=== PATIENT | female | born 1940 | race Caucasian/White ===

== ENCOUNTER → 2023-10-07 14:24 | Outpatient (REF) | payer OTHER, SELFPAY | LOC: REG 14:24 | PROVIDERS: ATTENDING PHYSICIAN Physician Assistant Medical | DX: M25.512 Pain in left shoulder (principal) | CPT/HCPCS: 73030 ==

== ENCOUNTER → 2023-10-26 09:41 | Outpatient (REF) | payer OTHER, SELFPAY | LOC: HWRAD 09:41 | PROVIDERS: ATTENDING PHYSICIAN Family Medicine | DX: M81.0 Age-related osteoporosis without current pathological fracture (principal) | CPT/HCPCS: 77080 ==

== ENCOUNTER → 2023-11-11 14:26 | Outpatient (REF) | payer OTHER, SELFPAY | LOC: HWRAD 14:26 | PROVIDERS: ATTENDING PHYSICIAN Physician Assistant Medical; FAMILY PHYSICIAN Family Medicine | DX: M79.644 Pain in right finger(s) (principal) | CPT/HCPCS: 73140 ==

== ENCOUNTER → 2024-05-23 08:31 | Outpatient (REF) | payer OTHER, SELFPAY | LOC: HWWDC 08:31 | PROVIDERS: ATTENDING PHYSICIAN Family Medicine | DX: Z12.31 Encounter for screening mammogram for malignant neoplasm of breast (principal) | CPT/HCPCS: 77063; 77067 ==

== ENCOUNTER 2024-08-04 20:26 | Emergency (ER) | payer OTHER, SELFPAY ==
[2024-08-04] VITALS (7 sets, daily range): BP systolic 159–192; BP diastolic 77–105; PULSE 92–99; BMI 31.2
[2024-08-04 21:07] LABS: % Basophils 0.8 % (0-2); % Eosinophils 1.5 % (0-6); % Immature Granulocytes 0.3 % (0-0.5); % Lymphocytes 25.6 % (20.5-51.1); % Monocytes 10.3 % (1.7-9.3); % Neutrophils 61.5 % (42.2-75.2); Absolute Basophils 0.1 10^3/uL (0-0.2); Absolute Eosinophils 0.1 10^3/uL (0-0.7); Absolute Lymphocytes 2.1 10^3/uL (1.2-3.4); Absolute Monocytes 0.8 10^3/uL (0.1-0.6); Absolute Neutrophils 4.9 10^3/uL (1.4-6.5); Hematocrit 40.5 % (37.0-47.0); Hemoglobin 13.8 g/dL (12.0-16.0); Mean Corp Hgb Conc. 34.1 g/dL (33.0-37.0); Mean Corpuscular Hgb 30.9 pg (27.0-31.0); Mean Corpuscular Volume 90.6 fL (81.0-99.0); Mean Platelet Volume 9.8 fL (7.4-10.4); Nucleated Red Blood Cells % 0 %; Platelet Count 268 10^3/uL (130-400); Red Blood Cell Count 4.47 10^6/uL (4.20-5.40); Red Cell Dist. Width 12.6 % (11.5-14.5)
[2024-08-04 21:23] LABS: COVID-19 Antigen Negative (Negative)
[2024-08-04 21:24] LABS: ALT (SGPT) 24 U/L (0-35); AST (SGOT) 24 U/L (14-36); Albumin 5.1 g/dl (3.5-5.0); Alkaline Phosphatase 59 U/L (38-126); Blood Urea Nitrogen 21 mg/dl (7-17); Calcium 10.1 mg/dl (8.4-10.2); Carbon Dioxide 22 mmol/L (22-30); Chloride 103 mmol/L (98-107); Glucose 134 mg/dl (70-99); Potassium 4.4 mmol/L (3.5-5.1); Sodium 139 mmol/L (135-145); Total Bilirubin 0.4 mg/dl (0.2-1.3); Total Protein 8.4 g/dl (6.3-8.2); eGFR > 60.00
[2024-08-04 22:42] LABS: Monotest Negative (Negative)
--- NOTE | 2024-08-04 22:45 | ED.GENMED ---
History of Present Illness
General
Chief Complaint: Cold/Flu/URI Symptoms
Source: patient
Exam Limitations: none
Time Seen by Provider: 08/04/24 22:02
Nursing documentation reviewed up to this point in time: agreed with
History of Present Illness
History of Present Illness:
84-year-old female with a past medical history of hypertension, hyperlipidemia who presents to the emergency department for evaluation of cough and URI symptoms. Patient reports onset of symptoms 5 days ago. She reports initially she had a sore
throat and then progressed to nasal congestion and cough. She says that today coughing became more severe was associated with sensation of mucus in her chest. She said she had some coughing fits during which she had trouble catching her breath.
She says she had some chest discomfort when she was coughing. Came to the emergency room to be evaluated. She denies any resting chest pain or dyspnea. She denies any vomiting or diarrhea, abdominal pain. She has not had a fever. She denies any
other complaints. Distant history of smoking, currently non-smoker.
Past History
Past History
ED Past Medical History: HTN, Hypercholesterolemia and Other
ED Past Surgical History: Cardiac (Cardiac catheterization 2009, minimal coronary artery disease.)
Social History
Tobacco: Former smoker (Quit 2008)
Alcohol: None
Personal:
Living: with family
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
Family History
Family History: Hypertension and CAD
Review of Systems
Review of Systems
All Other Systems: ROS reviewed and negative except as documented in HPI and ROS
Constitutional: Denies fever or chills
EENT: Reports sore throat and runny nose
Respiratory: Reports cough and trouble breathing
Cardiac: Reports chest pain; Denies palpitations
ABD/GI: Denies abdominal pain, nausea, vomiting or diarrhea
: Denies flank pain
Musculoskeletal: Denies neck pain or back pain
Neurological: Denies headache
Phy Exam
Physical Exam
Physical Exam:
General: Awake, alert, oriented x3; no acute distress
Head: Normocephalic, atraumatic
Eyes: Conjunctiva normal, sclera anicteric, pupils equal round and reactive to light bilaterally
Throat: Airway intact, handling secretions, no tonsillar erythema or exudate, midline uvula, moist mucous membranes
Neck: Trachea midline, supple without meningismus, no lymphadenopathy appreciated
Lungs: Normal respiratory rate, normal pulse ox on room air, normal work of breathing; no wheezing, rales, rhonchi appreciated on lung auscultation although patient does have frequent coughing
Heart: Regular rate and rhythm, no murmurs, gallops, or rubs�triage tachycardia resolved
Abd: Soft, non distended, nontender
Neuro: No gross deficits
Extremities: No edema in extremities, warm and well-perfused
Scores
Heart Failure Risk
Heart Failure Risk Score: Not Applicable
Heart Score for Chest Pain Patients
STEMI patient?: Not applicable
Withdrawal Assessment of Alcohol
Withdrawal Assessment Completed?: Not applicable
Sepsis
Sepsis Screening
Sepsis Assessment: Sepsis Ruled Out
Sepsis Screen
Sepsis Screen: Sepsis Ruled Out
Date: 08/05/24
Time: 05:50
Course
Orders/Labs/Results
Orders:
Orders
08/04/24 20:43
Chest [CR Chest - 2 Views ] Urgent
Comment:
Reason For Exam: cough
08/04/24 20:47
ECG [Electrocardiogram (*1)] Urgent
Reason for Study: Shortness of Breath
Cardiology Consult: Unknown
EKG- Treatment ONCE
08/04/24 20:58
COVID-19 Antigen Urgent
Source: Nasal Swab
Complete Blood Count/With Diff Urgent
Comprehensive Metabolic Panel Urgent
Monotest Urgent
Comment: ADD ON
Influenza A+B Rapid Molecular Urgent
MI[facility]AL[place] Source: Nasal Swab
Specimen Description:
08/04/24 22:06
Add On- LAB Urgent
Tests Added?: mono
08/04/24 22:42
Azithromycin [Zithromax] 500 mg PO NOW STA
08/04/24 23:04
Azithromycin [Zithromax] 500 mg PO NOW STA
Abnormal Lab Results
08/04/24
20:58
Absolute Monos (auto) 0.8 H 10^3/uL
(0.1-0.6)
Monocytes % 10.3 H %
(1.7-9.3)
BUN 21 H mg/dl
(7-17)
Creatinine 0.5 L mg/dL
(0.6-1.0)
Glucose 134 H mg/dl
(70-99)
Total Protein 8.4 H g/dl
(6.3-8.2)
Albumin 5.1 H g/dl
(3.5-5.0)
08/04/24 20:58
08/04/24 20:58
Vital Signs
Initial and Last Documented VS:
Initial Vital Signs
Temp Pulse Resp BP Pulse Ox
37.5 C 105 20 175/105 97
08/04/24 20:38 08/04/24 20:38 08/04/24 20:38 08/04/24 20:38 08/04/24 20:38
Last Documented Vital Signs
Temp Pulse Resp BP Pulse Ox
37.5 C 88 19 166/77 96
08/04/24 20:38 08/04/24 23:00 08/04/24 23:00 08/04/24 23:00 08/04/24 22:45
MDM/Problems Addressed
Differential Diagnosis Includes:
Bronchitis, pneumonia, viral URI
MDM/Problems Addressed:
84-year-old female presents for evaluation of worsening cough in the setting of URI symptoms for the past 5 days. She was hypertensive and tachycardic in triage, still marginally hypertensive but greatly improved and heart rate normal on my
assessment. Physical exam as above. She had lab work sent off including a CBC and a CMP which showed no clinically significant abnormalities. She was swabbed for COVID and influenza which were negative. She had a chest x-ray which showed no
acute pathology. Suspect that this is likely viral syndrome however given worsening productive cough 5 days into illness we will cover with antibiotics (despite reassuring chest x-ray) in case of developing pneumonia. Alexadave Parisa for
symptomatic treatment�she says that these have helped her in the past. No clear occasion for hospital admission at this point, stable for discharge, recommended outpatient PCP follow-up for blood pressure recheck. She feels comfortable with this
plan. We spoke about return precautions and all questions were answered.
Acute Exacerbation and/or Progression of Chronic Illness:
Hypertensive improved without intervention continue to monitor but no indication for emergent antihypertensive treatment
Acute Exacerbation and/or Progression of Chronic Illness: HTN
*Radiology
Radiology exam reviewed: radiology read reviewed
*Pulse Oximetry
Patient hypoxic: no
*EKG
Interpreted by ED Provider?: Yes
Heart Rate: 100
Rate: normal
Rhythm: sinus
[place]: normal axis
Interval: first degree heart block
QRS Pattern: normal QRS
Ischemia: no ischemia
*Critical Care Note
Total Time (30-74mins, 75-104mins- exclusive of procedures): Not Applicable
Data Reviewed
Source: patient and spouse
ED Attending Note
-
Portions of this chart may have been created with voice recognition software.� Occasional wrong word or��sound alike� substitutions may have occurred due to the inherent limitations of voice recognition software.
Discharge Plan
Departure
Patient Disposition: Home (Routine Discharge)
Date of Disposition: 08/04/24
Time of Disposition: 22:43
Patient with high blood pressure during this ER visit?: Yes
Discharge Problem:
Cough, Hypertension
Instructions: Cough, Adult (DC), BLOOD PRESSURE
Prescriptions:
New
benzonatate 200 mg capsule
200 mg PO TID PRN (Reason: Cough) Qty: 20 0RF
azithromycin 200 mg/5 mL suspension for reconstitution
250 mg PO DAILY 4 Days Qty: 25 0RF
Rx Instructions:
250 mg orally;
No Action
albuterol sulfate 1 PUFF HFA aerosol inhaler
2 puff inhalation R QID PRN (Reason: wheezing) Qty: 1 0RF
lisinopril 10 mg Tablet
15 mg PO DAILY
Patient Comments:
take 1 1/2 tablets
cholecalciferol (vitamin D3) [Vitamin D3] 50 mcg (2,000 unit) Tablet
50 mcg PO DAILY
Referrals:
Elisabeth Muñoz MD [Family Provider] - Follow up in 5-7 days
Activity Restrictions/Additional Instructions:
Thank you for visiting the Emergency Department at [facility].
1. Please schedule a follow up appointment as directed. Call first thing tomorrow morning to make an appointment.
2. If indicated, please take your medications as instructed and indicated on discharge paperwork.
3. If any of your symptoms do not improve, or persist, or become more severe within 6-12 hours, please return to the emergency department for further care.
4. Please return to the emergency department if you develop a headache, neck pain/stiffness, fever greater than 100.4F, chest pain, shortness of breath, persistent nausea, vomiting, slurred speech, difficulty walking, numbness/tingling, weakness,
signs of infection or any other symptoms that are worrisome to you.
Please call [phone] if you have any questions.
Interventions
Interventions:
*Risk Screen - Suicide Last Done: 08/04/24 20:38
*General Assessment Last Done: 08/04/24 20:38
*Neglect/Abuse Screening Last Done: 08/04/24 20:38
ED- Fall Risk Assessment Last Done: 08/04/24 20:38
*ED COVID-19 Vaccine History Last Done: 08/04/24 20:38
*Nursing Disposition Last Done: 08/04/24 23:30
ED- Pulmonary Assessment Last Done: 08/04/24 22:03
Discharge Date and Time
Discharge Date/Time: 08/04/24 23:30
Print Language: IRANIAN
[2024-08-04] MEDS: ZITHROMAX 500 MG PO (23:28)
== END 2024-08-04 23:30 | disposition home or self-care (01) ==
LOC: EMR 20:26
PROVIDERS: Emergency Medicine; EMERGENCY PHYSICIAN Emergency Medicine; FAMILY PHYSICIAN Family Medicine
DX: R05.9 Cough, unspecified (principal); I10 Essential (primary) hypertension; R07.89 Other chest pain; E78.00 Pure hypercholesterolemia, unspecified; I25.10 Atherosclerotic heart disease of native coronary artery without angina pectoris; Z87.891 Personal history of nicotine dependence
CPT/HCPCS: 99285; 71046; 80053; 85025; 86308; 87502; 87811; 93005

== ENCOUNTER → 2025-05-29 09:50 | Outpatient (REF) | payer OTHER, SELFPAY | LOC: HWWDC 09:50 | PROVIDERS: ATTENDING PHYSICIAN Family Medicine | DX: Z12.31 Encounter for screening mammogram for malignant neoplasm of breast (principal) | CPT/HCPCS: 77063; 77067 ==